=== PATIENT | male | born 1945 | race Caucasian/White ===

== ENCOUNTER 2017-02-24 13:11 | Day surgery (SDC) | payer MEDICARE, OTHER ==
--- NOTE | 2017-02-24 14:24 | RAD ---
EXAMINATION:CHEST - 2 VIEWS CLINICAL INDICATION: Increased cough. COMPARISON: 01/31/2015. FINDINGS: Heart size remains a stable. Aortic ectasia is noted. There is no adenopathy identified. There is no pleural effusion. The lungs are clear. Posttraumatic deformities of the left mid clavicle and right rib fractures are again noted. Scoliosis is noted. IMPRESSION: Stable senescent and posttraumatic changes of the thorax with no acute cardiopulmonary process identified.
[2017-02-24] MEDS ORDERED: LACTATED RINGERS 1,000 ML IV SCH (15:00)
[2017-02-24] MEDS ORDERED: LIDOCAINE 2% (PRES FREE) 5 ML VIAL ONE (15:02)
[2017-02-24] MEDS ORDERED: PROPOFOL 20 ML IV ONE (15:02)
== END 2017-02-24 16:20 | disposition home or self-care (01) ==
LOC: ED 13:11 → SDC 14:39
PROVIDERS: ATTEND Internal Medicine Gastroenterology
PROC: 0DC58ZZ Extirpation of Matter from Esophagus, Via Natural or Artificial Opening Endoscopic (ICD-10-PCS; principal; 2017-02-24)
DX: T18.128A Food in esophagus causing other injury, initial encounter (principal); R13.10 Dysphagia, unspecified; K29.60 Other gastritis without bleeding; K22.0 Achalasia of cardia; G20 Parkinson's disease; I10 Essential (primary) hypertension; Z74.01 Bed confinement status; Z87.01 Personal history of pneumonia (recurrent); Z86.19 Personal history of other infectious and parasitic diseases; Z79.899 Other long term (current) drug therapy